=== PATIENT | male | born 1965 | race Caucasian/White ===

== ENCOUNTER 2018-04-19 12:23 | Emergency (ER) | payer BC, OTHER ==
--- NOTE | 2018-04-19 14:24 | ED ---
Upper Extremity Pain - HPI Summary HPI Summary: Pt. is a 52 y.o female who presents to the ER for left elbow injury that occurred today. Pt. states he is in the area for his mother's and is from [place]. Pt. states he was walking on a side walk that was uneven and he fell landing onto his left arm. No head injury or LOC. Pt. notes extensive medical hx including kidney transplant years ago. He does have left AV shunt. Pt .is not anticoagulated. Symptoms are mild in severity. Moving left arm makes sxs worse. Rest makes sxs better. - History of Current Complaint Chief Complaint: EDExtremityUpper Stated Complaint: FALL/LEFT ELBOW INJURY Time Seen by Provider: 04/19/18 13:47 Hx Obtained From: Patient - Allergies/Home Medications Allergies/Adverse Reactions: Allergies Allergy/AdvReac Type Severity Reaction Status Date / Time cephalexin [From Keflex] Allergy Rash Verified 04/19/18 12:33 PMH/Surg Hx/FS Hx/Imm Hx Previously Healthy: Yes Infectious Disease History: No Infectious Disease History: Denies: Traveled Outside the [place] in Last 30 Days - Family History Known Family History: Positive: Non-Contributory - Social History Occupation: Works From/At Home Lives: Alone Alcohol Use: Rare Substance Use Type: Reports: None Smoking Status (MU): Never Smoked Tobacco Review of Systems Positive: Other - Left elbow pain and swelling Negative: Weakness, Paresthesia, Numbness All Other Systems Reviewed And Are Negative: Yes Physical Exam Triage Information Reviewed: Yes Vital Signs On Initial Exam: Initial Vitals Temp Pulse Resp BP Pulse Ox 97.5 F 66 16 186/90 99 04/19/18 12:25 04/19/18 12:25 04/19/18 12:25 04/19/18 12:25 04/19/18 12:25 Vital Signs Reviewed: Yes Appearance: Positive: Well-Appearing - Pt. sitting in chair in NAD. Pleasant. Skin: Positive: Warm, Dry Head/Face: Positive: Normal Head/Face Inspection Eyes: Positive: Normal, EOMI Neck: Positive: Supple Musculoskeletal: Positive: Other - Moderate edema and ecchymosis noted to the left elbow. No breaks in the skin. Good radial pulse on left. 5/5 strength in hand. Full ROM at elbow with pain. No proximal shoulder pain. Palpable thrill at AV fistula. Neurological: Positive: Normal, CN Intact II-III Psychiatric: Positive: Affect/Mood Appropriate Diagnostics - Vital Signs Vital Signs Temp Pulse Resp BP Pulse Ox 04/19/18 12:25 97.5 F 66 16 186/90 99 - Laboratory Lab Statement: Any lab studies that have been ordered have been reviewed, and results considered in the medical decision making process. Course/Dx - Course Course Of Treatment: Patient presenting with moderate hematoma to left forearm after a fall. No significant pain to left elbow. X-ray is unremarkable for acute findings. Concerned with patient's size of hematoma in proximity to AV fistula site. Case discussed with Dr. Liz who recommends ultrasound further evaluation of damage to fistula. Ultrasound shows intact fistula as well as hematoma seen on exam. Imaging per radiology. Results were discussed with patient. Advised to ice and elevate. Tylenol or Motrin for pain as directed. Pt. given information for the [facility] in case he needs follow- up before returning to [place]. Return to the ER if symptoms change or worsen. Patient understands and agrees with plan. - Diagnoses Differential Diagnosis/HQI/PQRI: Positive: Bursitis, Contusion, Fracture (Closed ), Hematoma, Strain, Sprain Provider Diagnoses: Hematoma Discharge - Sign-Out/Discharge Documenting (check all that apply): Patient Departure - Discharge Plan Condition: Good Disposition: HOME Patient Education Materials: Contusion in Adults (ED), Elbow Sprain (ED) Referrals: [facility] [Outside] No Primary Care Phys,NOPCP [Primary Care Provider] - Additional Instructions: Follow up with the [facility] if need for recheck Ice and elevate arm Tylenol for pain as directed Return to ER if symptoms change or worsen - Billing Disposition and Condition Condition: GOOD Disposition: Home
[2018-04-19 16:08] VITALS: BP 172/88
== END 2018-04-19 16:07 | disposition home or self-care (01) ==
LOC: ED 12:23
DX: S50.12XA Contusion of left forearm, initial encounter (principal); W19.XXXA Unspecified fall, initial encounter; Y92.480 Sidewalk as the place of occurrence of the external cause
CPT/HCPCS: 93990; 99281